=== PATIENT | female | born 1980 ===

== ENCOUNTER 2018-08-05 01:51 | Outpatient (CLI) | payer BC | END 2018-08-05 23:59 | disposition home or self-care (01) | LOC: DIABETIC 01:51 | PROVIDERS: ATTEND Obstetrics & Gynecology Obstetrics | DX: O24.410 Gestational diabetes mellitus in pregnancy, diet controlled (principal) | CPT/HCPCS: G0108 ==

== ENCOUNTER 2018-09-30 07:30 | Outpatient (CLI) | payer BC | END 2018-09-30 23:59 | disposition home or self-care (01) | LOC: DIABETIC 07:30 | PROVIDERS: ATTEND Obstetrics & Gynecology Obstetrics | DX: O99.810 Abnormal glucose complicating pregnancy (principal); Z3A.36 36 weeks gestation of pregnancy | CPT/HCPCS: G0108 ==